=== PATIENT | female | born 1955 | race Caucasian/White ===

== ENCOUNTER 2023-04-03 11:16 | Outpatient (CLI) | payer MEDICARE, SELFPAY | END 2023-04-03 11:17 | disposition home or self-care (01) | PROVIDERS: PCP Internal Medicine; Visit Provider Internal Medicine | DX: Z00.00 Encounter for general adult medical examination without abnormal findings (principal); E78.5 Hyperlipidemia, unspecified; E03.9 Hypothyroidism, unspecified; R73.03 Prediabetes; R53.83 Other fatigue; I10 Essential (primary) hypertension | CPT/HCPCS: 80061; 84443 ==

== ENCOUNTER 2023-12-29 11:33 | Outpatient (CLI) | payer MEDICARE, SELFPAY | END 2023-12-29 11:34 | disposition home or self-care (01) | PROVIDERS: PCP Internal Medicine; Visit Provider Internal Medicine | DX: R73.03 Prediabetes (principal); E78.5 Hyperlipidemia, unspecified; E03.9 Hypothyroidism, unspecified; I10 Essential (primary) hypertension | CPT/HCPCS: 80053; 80061; 84443 ==

== ENCOUNTER 2024-06-03 13:08 | Outpatient (CLI) | payer MEDICARE, SELFPAY ==
--- OUTSIDE RECORDS SUMMARY | 2024-03-08 11:49 | XMS_ITS | Encounter Summary ---
Author Organization [place] Address [address] [place] [address] Care Team Providers Care Environmental Economist Name Role Phone Mariela Martinez MD Primary Care Provide r Cheryle Lo RN Unavailable Mariela Martinez MD Unavailable Mariela Martinez MD Unavailable Shalonda Kat NP Unavailable Mariela Martinez MD Unavailable Reason for Visit * Reason Comments Medication Refill lisinopril-hydrochlo rothiazide (PRINZIDE/ZESTORETIC) 20-25 MG per tablet Encounter Details Date Type Department Care Team (Late st Contact Info) Description 04/29/2017 [facility] [address] [facility] [address] [place] [address] Mariela Martinez MD [address] [place] [address] Medication Refill (lisinopril-hydrochloro thiazide (PRINZIDE/ZESTORETIC) 20-25 MG per tablet) Social History Tobacco Use Types Packs/Day Years Used Date Smoking Tobacco: Former Smokeless Tobacco: Never Alcohol Use Standard Drinks/Week Comments Yes 0 (1 standard drink = 0.6 oz pur e alcohol) once a week Comments No Sex and Gender Information Value Date Recorded Sex Assigned at Not on file Legal Sex Female 3:27 AM AIRCRAFT PAINTER APPRENTICE Gender Identity Not on file Sexual Orientation Not on file documented as of this encounter Miscellaneous Notes * Telephone Encounter - Mariela Martinez MD - 05/02/2017 3:32 PM AIRCRAFT PAINTER APPRENTICE Script sent. Mariela Martinez MD RAFT PAINTER APPRENTICE * Telephone Encounter - Lisa Michaels RN - 05/02/2017 8:45 AM AIRCRAFT PAINTER APPRENTICE Routing refill request to provider for review/approval because: Labs out of range: Low Sodium Upcoming OV in May. Lisa Jones RN, BSN, PHN Alexa Nicole RN RAFT PAINTER APPRENTICE * Telephone Encounter - Minnie Honeycutt - 04/29/2017 11:35 AM CST Requested Prescriptions Pending Prescriptions Disp Refills ??? lisinopril-hydrochlorothiazide (PRINZIDE/ZESTORETIC) 20-25 MG per tablet [Pharmacy Med Name: LISINOPRIL/HCTZ 20-25MG TAB] Last Written Prescription Date: 02/28/2017 Last Fill Quantity: 30, # refills: 1 Last Office Visit with [facility] provider: 02/28/2017 Future Office Visit: Next 5 appointments (look out 90 days) May 05, 2017 1:30 PM AIRCRAFT PAINTER APPRENTICE Return Visit with TANYA [facility] ([facility]) [address] [phone] Jun 02, 2017 10:30 AM AIRCRAFT PAINTER APPRENTICE Return Visit with TANYA Adair [facility] ([facility]) [address] [phone] Jun 17, 2017 10:00 AM CDT Office Visit with Mariela Martinez MD [facility] [address] [place] [address] 30 tablet 1 Sig: TAKE ONE TABLET BY MOUTH ONCE DAILY Diuretics (Including Combos) Protocol Failed 04/29/2017 10:11 AM Failed - Blood pressure under 140/90 BP Readings from Last 3 Encounters: 04/07/17 161/85 04/01/17 130/78 02/28/17 130/72 Failed - Normal serum sodium on file in past 12 months Recent Labs Lab Test 04/07/17 2225 NA 132* Passed - Recent or future visit with authorizing provider's specialty Patient had office visit in the last year or has a visit in the next 30 days with authorizing provider. See Patient Info tab in inbasket, or Choose Columns in Meds & Orders section of the refill encounter. Passed - Patient is age 18 or older Passed - No active pregancy on record Passed - Normal serum creatinine on file in past 12 months Recent Labs Lab Test 04/07/17 2225 CR 0.62 Passed - Normal serum potassium on file in past 12 months Recent Labs Lab Test 04/07/17 2225 POTASSIUM 3.7 Passed - No positive test in past 12 months RAFT PAINTER APPRENTICE documented in this encounter Plan of Treatment Not on file documented as of this encounter Visit Diagnoses Diagnosis Essential hypertension Unspecified essential hypertension documented in this encounter Additional Health Concerns Assessment Noted Time PHQ-9 Depression Total Score: 9 03/26/20 17 10:36 AM AIRCRAFT PAINTER APPRENTICE documented as of this encounter Care Teams Environmental Economist Relationship Specialty Start Date End Date Mariela Martinez MD PCP - General Pediatrics 01/02/11 Mariela Martinez MD [address] [place] [address] PCP - Assigned PCP 05/13/16 06/02/18 Cheryle Lo RN XXX NO INFO FOUND XXX Clinic Technical Sales Manager 11/11/14 Mariela Martinez MD [address] [place] [address] Assigned PCP 05/13/16 07/31/19 Shalonda Kat NP [address] [facility] [place] [address] Assigned PCP 08/01/19 11/06/19 Mariela Martinez MD [address] [place] [address] Assigned PCP 11/07/19 10/12/21 documented as of this encounter
--- OUTSIDE RECORDS SUMMARY | 2024-03-08 11:49 | XMS_ITS | Encounter Summary ---
Author Organization [place] Address [address] [place] [address] Care Team Providers Care Grain Cleaner Name Role Phone Mariela Martinez MD Primary Care Provide r Cheryle Lo RN Unavailable Mariela Martinez MD Unavailable Mariela Martinez MD Unavailable [phone] Shalonda Kat NP Unavailable [phone] Mariela Martinez MD Unavailable Encounter Details Date Type Department Care Team (Late st Contact Info) Description 11/12/2012 [facility] Medical Advice [address] [address] [place] Social History Tobacco Use Types Packs/Day Years Used Date Smoking Tobacco: Former Smokeless Tobacco: Never Alcohol Use Standard Drinks/Week Comments Yes 0 (1 standard drink = 0.6 oz pur e alcohol) once a week Comments No Sex and Gender Information Value Date Recorded Sex Assigned at Not on file Legal Sex Female 3:27 AM ACTIVE DIRECTORY ENGINEER Gender Identity Not on file Sexual Orientation Not on file documented as of this encounter Plan of Treatment Not on file documented as of this encounter Visit Diagnoses Not on filedocumented in this encounter Care Teams Grain Cleaner Relationship Specialty Start Date End Date Mariela Martinez MD PCP - General Pediatrics 01/02/11 Mariela Martinez MD [address] [place] [address] PCP - Assigned PCP 05/13/16 06/02/18 Cheryle Lo RN XXX NO INFO FOUND XXX Clinic Calenderer 11/11/14 Mariela Martinez MD [address] [place] [address] Assigned PCP 05/13/16 07/31/19 Shalonda Kat NP [address] [facility] [place] [address] Assigned PCP 08/01/19 11/06/19 Mariela Martinez MD [address] [place] [address] Assigned PCP 11/07/19 10/12/21 documented as of this encounter
--- OUTSIDE RECORDS SUMMARY | 2024-03-08 11:49 | XMS_ITS | Clinical Summary ---
Author Organization [place] Address [address] [place] [address] Care Team Providers Care Refining Equipment Operator Name Role Phone Mariela Martinez MD Primary Care Provide r Allergies Active Allergy Reactions Criticality Noted Date Comments Banana 01/24/2017 Cheese 02/28/2017 Demerol Hives 12/30/2005 Duloxetine Hcl Hives 12/30/2005 Gluten 11/11/2012 Lip swelling and redness Lactose 09/07/2014 Sensitivity to dairy Morphine Hives 12/30/2005 Morphine And Codeine Hives 12/30/2005 No Clinical Screening - See Comments 11/11/2012 Shampoos and hair dyes and body washes. Is able to use Baby shampoo and Lye soap. Itching Paroxetine Palpitations Low 01/09/2011 Seafood 01/02/2011 Tea Cough 07/10/2011 Camomile Bupropion Hcl Swelling High 01/09/2011 Wheat Extract 09/07/2014 Wheat sensitivity Medications Multiple Vitamins-Mineral s (ONE-A-DAY 50 PLUS PO) Take by mouth. Activ e Menthol, Topical Analgesic, (ICY HOT EX) Externally apply topically. Active aspirin 81 MG tablet Take by mouth daily Active VITAMIN D, CHOLECALCIFEROL, PO Take 2,000 Units by mouth daily Active loratadine (CLARITIN) 10 MG capsule Take 10 mg by mouth daily Active DiphenhydrAMINE HCl (BENADRYL ALLERGY PO) Take by mouth as needed Active lisinopril-hydro chlorothiazide (PRINZIDE/ZESTOR ETIC) 20-25 MG tabletIndication s:Hypertension goal BP (blood pressure) < 140/90 Take 1 tablet by mouth daily 90 tablet 3 9 Active venlafaxine (EFFEXOR XR) 37.5 MG 24 hr capsuleIndicatio ns:Generalized anxiety disorder,Severe episode of recurrent major depressive disorder, without psychotic features (H) One pill daily with 150mg to reach total dose of 187.5 mg 90 capsule 1 9 Active venlafaxine (EFFEXOR-XR) 75 MG 24 hr capsuleIndicatio ns:Generalized anxiety disorder,Severe episode of recurrent major depressive disorder, without psychotic features (H) TAKE TWO CAPSULES BY MOUTH ONCE DAILY 180 capsule 1 9 Active Misc Natural Products (T-RELIEF CBD+13) SUBL 9 Active SYNTHROID 112 MCG tabletIndication s:Hypothyroidism , unspecified type TAKE 1 TABLET BY MOUTH ONCE DAILY 90 tablet 3 9 Active Active Problems Problem Noted Date Diagnosed Date Morbid obesity, unspecified obesity type 017 Atypical migraine 10/31/2016 PTSD (post-traumatic stress disorder) 02/10/2015 Memory loss 01/12/2015 Overview (01/12/2015): Forgetfulness (e.g. Where she placed things, finding words). MoCA on 01/12 was 27 Assessment & Plan (01/12/2015 2:09 PM CDT): A: Forgetfulness (e.g. Where she placed things, finding words). MoCA on 01/12 was 2730. Compounded by stress of depression and PTSD P:We discussed the spectrum of memory changes Added B12, folate BMP to labs and MRI Refer to neuropsychologist for more in depth neuropsych testing Generalized anxiety disorder 11/15/2014 Assessment & Plan (01/12/2015 2:11 PM CDT): A: related to PTSD, controls panic attacks with breathing strategies now P: Feels the depression group she attends is helping a lot and plans to follow that with inquiry about PTSD support group, all also help her overall cognitive function Severe recurrent major depression 09/07/2014 Overview (01/11/2015): Failed paxil (palpitations), zoloft (?palpitations; weight gain), effexor (quit working), cymbalta (hives), wellbutrin (throat swelling), prozac (raised bp, felt better off it). Has not been on lexapro/celexa Hypertension goal BP (blood pressure) < 140/90 0 08/06/2013 TACHO (obstructive sleep apnea) 08/26/2011 Overview (08/26/2011): Dx 07/2011 Fibromyalgia 01/09/2011 Overview (08/16/2011): NSAIDS Wellbutrin, prozac, cymbalta, effexor relafen- ulcers lyrica- mood issues, memory issues. PUD (peptic ulcer disease) 01/09/2011 Overview (01/09/2011): From NSAID use from fibro Hypothyroidism 01/09/2011 CARDIOVASCULAR SCREENING; LDL GOAL LESS THAN 160 01/09/2011 Resolved Problems Problem Noted Date Diagnosed Date Resolved Date Trochanteric bursitis of right hip 02/24/2018 04/23/2018 Weakness of right hip 02/24/20182018 Primary osteoarthritis of right knee 02/24/2018 04/23/2018 Nonallopathic lesion of sacroiliac region 06/15/2015 12/11/2017 Nonallopathic lesion of hip region 06/15/2015 12/11/2017 Cervicalgia 06/11/2015 12/11/2017 Nonallopathic lesion of thoracic region 06/11/2015 12/11/2017 Hip joint pain 03/25/2012 04/27/2012 Chronic low back pain 03/25/20122012 Cervicalgia 09/05/2011 01/15/2012 Lumbago 09/05/2011 01/15/2012 Nonallopathic lesion of thoracic region 09/05/2011 01/15/2012 Overview (12/30/2014): Problem list name updated by automated process. Provider to review Nonallopathic lesion of upper extremities 09/05/2011 01/15/2012 Overview (12/30/2014): Problem list name updated by automated process. Provider to review Pain in joint, shoulder region 09/05/2011 01/15/2012 Advanced directives, counseling/discussion 01/09/2011 09/15/2023 Overview (07/16/2016): Advance Care Planning 07/16/2016: ACP Review of Chart / Resources Provided: Reviewed chart for advance care plan. Gail Celaya has no plan or code status on file. Advance Care Planning letter sent. Code status updated and sent to provider for review. Added by Ilsa Way Discussed advance care planning with patient; information given to patient to review. 01/09/2011 Immunizations Name Administration Dates Next Due COVID-19 MONOVALENT 12+ (Pfizer) 12/26/2020,05/30,06/02/2020 Flu 65+ (Fluad) 12/11/2020 Influenza (High Dose) Trival ent,PF (Fluzone) 01/19/2019 Influenza (IIV3) PF 12/10/2016,01/15/2012,2010 Influenza Vaccine 65+ (Fluzone HD) 01/21/2022 Influenza Vaccine >6 months,quad, PF 12/16/2017 Pneumo Conj 13-V (2010&after) 05/25/2019 Pneumococcal 23 valent 09/12/2020 TDAP (Adacel,Boostrix) 05/25/2009 TDAP Vaccine (Boostrix) 09/12/2020 Zoster recombinant adjuvanted (SHINGRIX) 021 Family History Medical History Relation Comments C.A.D. Father Alzheimer Disease Mother Arthritis Mother Hypertension Mother Respiratory Mother COPD Musculoskeletal Disorder Sister sister has MS Colon Cancer No family hx of Relation Status Comments Brother Alive Father (Age 78) Mother Alive Sister Alive Social History Tobacco Use Types Packs/Day Years Used Date Smoking Tobacco: Former Smokeless Tobacco: Never Tobacco Cessation:Counseling Given: Yes Alcohol Use Standard Drinks/Week Comments Yes 0 (1 standard drink = 0.6 oz pur e alcohol) once a week PHQ-2 Answer Date Recorded PHQ-2 Score 1 12/16/2018 Adolescent Education Answer Date Record ed Getting School Help Needed Not on file 12/29 Comments No Sex and Gender Information Value Date Recorded Sex Assigned at Not on file Legal Sex Female 3:27 AM INDUSTRIAL SAFETY AND HEALTH MANAGER Gender Identity Not on file Sexual Orientation Not on file Last Filed Vital Signs Vital Sign Reading Time Taken Comments Blood Pressure 140/75 03/10/2019 12:19 PM INDUSTRIAL SAFETY AND HEALTH MANAGER Pulse 74 03/10/2019 12:10 PM INDUSTRIAL SAFETY AND HEALTH MANAGER Temperature 36.6 C (97.8 F) 12/16/2018 8:58 AM CDT Respiratory Rate 16 03/10/2019 12:19 PM INDUSTRIAL SAFETY AND HEALTH MANAGER Oxygen Saturation 97% 03/10/2019 12:19 PM INDUSTRIAL SAFETY AND HEALTH MANAGER Inhaled Oxygen Concentration - - Weight 87.1 kg (192 lb) 03/10/2019 10:38 AM INDUSTRIAL SAFETY AND HEALTH MANAGER Height 157.5 cm (5' 2) 03/10/2019 10:38 AM INDUSTRIAL SAFETY AND HEALTH MANAGER Body Mass Index 35.12 03/10/2019 10:38 AM INDUSTRIAL SAFETY AND HEALTH MANAGER Plan of Treatment Not on file Insurance [address] [place] [address] MEDICARE [facility] MEDICARE SUPPLEMENT [place]ARE [place] Advance Directives For more information, please contact: [phone] * Full Code (Latest Code Status on File) Date Activated Date Inactivated Comments 07/17/2016 8:11 AM 03/10/2019 9:03 AM Care Teams Refining Equipment Operator Relationship Specialty Start Date End Date Mariela Martinez MD PCP - General Pediatrics 01/02/11
--- OUTSIDE RECORDS SUMMARY | 2024-03-08 11:49 | XMS_ITS | Encounter Summary ---
Author Organization [place] Address [address] [place] [address] Care Team Providers Care Safety Assistant Name Role Phone Mariela Martinez MD Primary Care Provide r Cheryle Lo RN Unavailable Mariela Martinez MD Unavailable Mariela Martinez MD Unavailable Shalonda Kat NP Unavailable [phone] Mariela Martinez MD Unavailable Reason for Visit * Reason Onset Date Comments Depression 06/07/2014 Questionnaire Encounter Details Date Type Department Care Team (Late st Contact Info) Description 06/07/2014 [facility] Medical Advice [address] [address] Luz Carlson CMA Depression (Questionnaire ) Social History Tobacco Use Types Packs/Day Years Used Date Smoking Tobacco: Former Smokeless Tobacco: Never Alcohol Use Standard Drinks/Week Comments Yes 0 (1 standard drink = 0.6 oz pur e alcohol) once a week Comments No Sex and Gender Information Value Date Recorded Sex Assigned at Not on file Legal Sex Female 3:27 AM OPERATORS TEACHER Gender Identity Not on file Sexual Orientation Not on file documented as of this encounter Plan of Treatment Not on file documented as of this encounter Visit Diagnoses Not on filedocumented in this encounter Care Teams Safety Assistant Relationship Specialty Start Date End Date Mariela Martinez MD PCP - General Pediatrics 01/02/11 Mariela Martinez MD [address] [place] [address] PCP - Assigned PCP 05/13/16 06/02/18 Cheryle Lo, RN XXX NO INFO FOUND XXX Clinic Channel Marketing Specialist 11/11/14 Mariela Martinez MD [address] [place] [address] Assigned PCP 05/13/16 07/31/19 Shalonda Kat NP [address] [facility] [place] [address] Assigned PCP 08/01/19 11/06/19 Mariela Martinez MD [address] [place] [address] Assigned PCP 11/07/19 10/12/21 documented as of this encounter
--- OUTSIDE RECORDS SUMMARY | 2024-03-08 11:49 | XMS_ITS | Referral Summary ---
Author Organization [facility] Address [address] [place] [address] Care Team Providers Care Truck Driver Helper Name Role Phone Mariela Martinez MD Primary [...] (Boostrix) 09/12/2020 Zoster recombinant adjuvanted (SHINGRIX) 021 Social History Tobacco Use Types Packs/Day Years [...] on file Legal Sex Female 3:27 AM HYDRAULIC BOOM OPERATOR Gender Identity Not on file Sexual Orientation Not on file Last Filed Vital Signs Vital Sign Reading Time Taken Comments Blood Pressure 140/75 03/10/2019 12:19 PM HYDRAULIC BOOM OPERATOR Pulse 74 03/10/2019 12:10 PM HYDRAULIC BOOM OPERATOR Temperature 36.6 C (97.8 F) 12/16/2018 8:58 AM CDT Respiratory Rate 16 03/10/2019 12:19 PM HYDRAULIC BOOM OPERATOR Oxygen Saturation 97% 03/10/2019 12:19 PM HYDRAULIC BOOM OPERATOR Inhaled Oxygen Concentration - - Weight 87.1 kg (192 lb) 03/10/2019 10:38 AM HYDRAULIC BOOM OPERATOR Height 157.5 cm (5' 2) 03/10/2019 10:38 AM HYDRAULIC BOOM OPERATOR Body Mass Index 35.12 03/10/2019 10:38 AM HYDRAULIC BOOM OPERATOR Plan of Treatment Not on file Insurance MEDICARE [facility] MEDICARE SUPPLEMENT MEDICARE [place]BS OF [place] MEDICARE SUPPLEMENT Advance Directives For more information, please contact: [phone] * Full Code (Latest Code Status on File) Date Activated Date Inactivated Comments 07/17/2016 8:11 AM 03/10/2019 9:03 AM Care Teams Truck Driver Helper Relationship Specialty Start Date End Date Mariela Martinez MD PCP - General Pediatrics 01/02/11
--- OUTSIDE RECORDS SUMMARY | 2024-03-08 11:49 | XMS_ITS | Encounter Summary ---
Author Organization [place] Address [address] [place] [address] Care Team Providers Care Industrial Photographer Name Role Phone Mariela Martinez MD Primary Care Provide r Cheryle Lo RN Unavailable Mariela Martinez MD Unavailable Shalonda Kat NP Unavailable [phone] Mariela Martinez MD Unavailable Encounter Details Date Type Department Care Team (Late st Contact Info) Description 08/07/2018 [facility] Medical Advice [address] [place] [phone] Marcia [place] Social History Tobacco Use Types Packs/Day Years Used Date Smoking Tobacco: Former Smokeless Tobacco: Never Alcohol Use Standard Drinks/Week Comments Yes 0 (1 standard drink = 0.6 oz pur e alcohol) once a week PHQ-2 Answer Date Recorded PHQ-2 Score 3 04/07/2018 Comments No Sex and Gender Information Value Date Recorded Sex Assigned at Not on file Legal Sex Female 3:27 AM DETENTION WORKER Gender Identity Not on file Sexual Orientation Not on file documented as of this encounter Plan of Treatment Not on file documented as of this encounter Visit Diagnoses Not on filedocumented in this encounter Additional Health Concerns Assessment Noted Time PHQ-9 Depression Total Score: 21 02/23/ 018 11:34 AM DETENTION WORKER documented as of this encounter Care Teams Industrial Photographer Relationship Specialty Start Date End Date Mariela Martinez MD PCP - General Pediatrics 01/02/11 Cheryle Lo, RN XXX NO INFO FOUND XXX Clinic Brief Writer 11/11/14 Mariela Martinez MD [address] [place] [address] Assigned PCP 05/13/16 07/31/19 Shalonda Kat NP [address] [facility] [place] [address] Assigned PCP 08/01/19 11/06/19 Mariela Martinez MD [address] [place] [address] Assigned PCP 11/07/19 10/12/21 documented as of this encounter
--- OUTSIDE RECORDS SUMMARY | 2024-03-08 11:49 | XMS_ITS | Encounter Summary ---
Author Organization [place] Address [address] [place] [address] Care Team Providers Care Guest Service Manager Name Role Phone Mariela Martinez MD Primary Care Provide r Cheryle Lo RN Unavailable Mariela Martinez MD Unavailable Mariela Martinez MD Unavailable Shalonda Kat NP Unavailable Mariela Martinez MD Unavailable Reason for Visit * Reason Onset Date Comments Patient/info Update 04/01/2017 home BP's Encounter Details Date Type Department Care Team (Late st Contact Info) Description 04/01/2017 [facility] Medical Advice [address] [place] [address] Mariela Martinez MD [address] [place] [address] Patient/info Update (home BP's) Social History Tobacco Use Types Packs/Day Years Used Date Smoking Tobacco: Former Smokeless Tobacco: Never Alcohol Use Standard Drinks/Week Comments Yes 0 (1 standard drink = 0.6 oz pur e alcohol) once a week Comments No Sex and Gender Information Value Date Recorded Sex Assigned at Not on file Legal Sex Female 3:27 AM CASH PERSON Gender Identity Not on file Sexual Orientation Not on file documented as of this encounter Plan of Treatment Not on file documented as of this encounter Visit Diagnoses Diagnosis Essential hypertension with goal blood pressure less than 140/90- Primary documented in this encounter Additional Health Concerns Assessment Noted Time PHQ-9 Depression Total Score: 9 03/26/20 17 10:36 AM CASH PERSON documented as of this encounter Care Teams Guest Service Manager Relationship Specialty Start Date End Date Mariela Martinez MD PCP - General Pediatrics 01/02/11 Mariela Martinez MD [address] [place] [address] PCP - Assigned PCP 05/13/16 06/02/18 Cheryle Lo, RN XXX NO INFO FOUND XXX Clinic Pipe Finisher 11/11/14 Mariela Martinez MD [address] [place] [address] Assigned PCP 05/13/16 07/31/19 Shalonda Kat SCALE ADJUSTER [address] [facility] [place] [address] Assigned PCP 08/01/19 11/06/19 Mariela Martinez MD [address] [place] [address] Assigned PCP 11/07/19 10/12/21 documented as of this encounter
--- OUTSIDE RECORDS SUMMARY | 2024-03-08 11:49 | XMS_ITS | Encounter Summary ---
Author Organization [facility] Address [address] [place] [address] Care Team Providers Care Vertical Contour Band Saw Operator Name Role Phone Mariela Martinez MD Primary Care Provide r Cheryle Lo RN Unavailable Mariela Martinez MD Unavailable [phone] Shalonda Kat NP Unavailable Mariela Martinez MD Unavailable Encounter Details Date Type Department Care Team (Late st Contact Info) Description 09/07/2018 [facility] Medical Advice [facility] [address] [facility] [address] [place] [address] Mariela Martinez MD [address] [place] [address] Social History Tobacco Use Types Packs/Day Years Used Date Smoking Tobacco: Former Smokeless Tobacco: Never Alcohol Use Standard Drinks/Week Comments Yes 0 (1 standard drink = 0.6 oz pur e alcohol) once a week PHQ-2 Answer Date Recorded PHQ-2 Score 3 04/07/2018 Comments No Sex and Gender Information Value Date Recorded Sex Assigned at Not on file Legal Sex Female 3:27 AM LATHER APPRENTICE Gender Identity Not on file Sexual Orientation Not on file documented as of this encounter Plan of Treatment Not on file documented as of this encounter Visit Diagnoses Not on filedocumented in this encounter Additional Health Concerns Assessment Noted Time PHQ-9 Depression Total Score: 21 018 11:34 AM LATHER APPRENTICE documented as of this encounter Care Teams Vertical Contour Band Saw Operator Relationship Specialty Start Date End Date Mariela Martinez MD PCP - General Pediatrics 01/02/11 Cheryle Lo, RN XXX NO INFO FOUND XXX Clinic Organ Installer 11/11/14 Mariela Martinez MD [address] [place], [place] [id number] Assigned PCP 05/13/16 07/31/19 Shalonda Kat NP [address] [facility] [place] [id number] Assigned PCP 08/01/19 11/06/19 Mariela Martinez MD [address] [place] [address] Assigned PCP 11/07/19 10/12/21 documented as of this encounter
--- OUTSIDE RECORDS SUMMARY | 2024-03-08 11:49 | XMS_ITS | Encounter Summary ---
Author Organization [facility] Address [address] [place] [address] Care Team Providers Care Superannuation Clerk Name Role Phone Mariela Martinez MD Primary Care Provide r Cheryle Lo RN Unavailable Mariela Martinez MD Unavailable Mariela Martinez MD Unavailable [phone] Shalonda Kat NP Unavailable Mariela Martinez MD Unavailable [phone] Reason for Visit * Reason Onset Date Comments Results 03/01/2015 MRI Encounter Details Date Type Department Care Team (Late st Contact Info) Description 03/01/2015 [facility] [place] [address] [address] Mariela Martinez MD [address] [place] [address] Results (MRI) Social History Tobacco Use Types Packs/Day Years Used Date Smoking Tobacco: Former Smokeless Tobacco: Never Alcohol Use Standard Drinks/Week Comments Yes 0 (1 standard drink = 0.6 oz pur e alcohol) once a week Comments No Sex and Gender Information Value Date Recorded Sex Assigned at Not on file Legal Sex Female 3:27 AM REDUCTION FURNACE OPERATOR HELPER Gender Identity Not on file Sexual Orientation Not on file documented as of this encounter Miscellaneous Notes * Telephone Encounter - Adrienne Barnes RN - 03/01/2015 4:39 PM CST Routing to Dr. Martinez to review patient's MRI results. Adrienne Barnes RN CTION FURNACE OPERATOR HELPER documented in this encounter Plan of Treatment Not on file documented as of this encounter Visit Diagnoses Not on filedocumented in this encounter Additional Health Concerns Assessment Noted Time PHQ-9 Depression Total Score: 11 015 7:25 AM REDUCTION FURNACE OPERATOR HELPER documented as of this encounter Care Teams Superannuation Clerk Relationship Specialty Start Date End Date Mariela Martinez MD PCP - General Pediatrics 01/02/11 Mariela Martinez MD [address] [place] [address] PCP - Assigned PCP 05/13/16 06/02/18 Cheryle Lo RN XXX NO INFO FOUND XXX Clinic Bar Steward 11/11/14 Mariela Martinez MD [address] [place] [address] Assigned PCP 05/13/16 07/31/19 Shalonda Kat SCHOOL ATHLETIC DIRECTOR [address] [facility] [place] [address] Assigned PCP 08/01/19 11/06/19 Mariela Martinez MD [address] [place] [address] Assigned PCP 11/07/19 10/12/21 documented as of this encounter
--- OUTSIDE RECORDS SUMMARY | 2024-03-08 11:49 | XMS_ITS | Encounter Summary ---
Author Organization [place] Address [facility] [place] [address] Care Team Providers Care Safety Investigator/Cause Analyst Name Role Phone Mariela Martinez MD Primary Care Provide r Cheryle Lo RN Unavailable Mariela Martinez MD Unavailable [phone] Shalonda Kat NP Unavailable [phone] Mariela Martinez MD Unavailable Reason for Visit * Reason Onset Date Comments MyChart Communication 09/07/2018 Sinus infe ction not improving Encounter Details Date Type Department Care Team (Late st Contact Info) Description 09/07/2018 [facility] Medical Advice [place] [id number] [facility] [address] [place] [address] Mariela Martinez MD [address] [place] [address] MyChart Communication (Sinus infection not... Social History Tobacco Use Types Packs/Day Years Used Date Smoking Tobacco: Former Smokeless Tobacco: Never Alcohol Use Standard Drinks/Week Comments Yes 0 (1 standard drink = 0.6 oz pur e alcohol) once a week PHQ-2 Answer Date Recorded PHQ-2 Score 3 04/07/2018 Comments No Sex and Gender Information Value Date Recorded Sex Assigned at Not on file Legal Sex Female 3:27 AM DIP PAINTER Gender Identity Not on file Sexual Orientation Not on file documented as of this encounter Miscellaneous Notes * Telephone Encounter - Lisa Michaels RN - 09/08/2018 8:32 AM CDT PCP please review MyChart message regarding sinusitis. Triage awaiting patient response. Lisa Araujo RN, BSN, PHN documented in this encounter Plan of Treatment Not on file documented as of this encounter Visit Diagnoses Not on filedocumented in this encounter Additional Health Concerns Assessment Noted Time PHQ-9 Depression Total Score: 21 018 11:34 AM DIP PAINTER documented as of this encounter Care Teams Safety Investigator/Cause Analyst Relationship Specialty Start Date End Date Mariela Martinez MD PCP - General Pediatrics 01/02/11 Cheryle Lo RN XXX NO INFO FOUND XXX Clinic Staffing Clerk 11/11/14 Mariela Martinez MD [address] [place] [address] Assigned PCP 05/13/16 07/31/19 Shalonda Kat NP [address] [facility] [place] [address] Assigned PCP 08/01/19 11/06/19 Mariela Martinez MD [address] [place] [address] Assigned PCP 11/07/19 10/12/21 documented as of this encounter
--- OUTSIDE RECORDS SUMMARY | 2024-03-08 11:49 | XMS_ITS | Encounter Summary ---
Author Organization [facility] Address [address] [place] [address] Care Team Providers Care Retail Financial Analyst Name Role Phone Mariela Martinez MD Primary Care Provide r Cheryle Lo RN Unavailable Mariela Martinez MD Unavailable Mariela Martinez MD Unavailable Shalonda Kat NP Unavailable Mariela Martinez MD Unavailable [phone] Reason for Visit * Reason Onset Date Comments Hypertension 06/21/2012 Encounter Details Date Type Department Care Team (Late st Contact Info) Description 06/21/2012 [facility] Medical Advice [address] [address] Mariela Martinez MD [address] [place] [address] Hypertension Social History Tobacco Use Types Packs/Day Years Used Date Smoking Tobacco: Former Smokeless Tobacco: Never Alcohol Use Standard Drinks/Week Comments Yes 0 (1 standard drink = 0.6 oz pur e alcohol) once a week Comments No Sex and Gender Information Value Date Recorded Sex Assigned at Not on file Legal Sex Female 3:27 AM DISPLAY MECHANIC Gender Identity Not on file Sexual Orientation Not on file documented as of this encounter Miscellaneous Notes * Telephone Encounter - Temi Merida - 06/22/2012 7:46 AM CDT Per office appointment note of 03/18/12-HTN (hypertension) -well controlled, no need for meds currently Patient had been on Lisinopril/HCTZ prior to this. Office appointment for blood pressure check? Ja Merida RN documented in this encounter Plan of Treatment Not on file documented as of this encounter Visit Diagnoses Diagnosis HTN (hypertension)- Primary Unspecified essential hypertension documented in this encounter Care Teams Retail Financial Analyst Relationship Specialty Start Date End Date Mariela Martinez MD PCP - General Pediatrics 01/02/11 Mariela Martinez MD [address] [place] [address] PCP - Assigned PCP 05/13/16 06/02/18 Cheryle Lo RN XXX NO INFO FOUND XXX Clinic Outside Collector 11/11/14 Mariela Martinez MD [address] [place] [address] Assigned PCP 05/13/16 07/31/19 Shalonda Kat NP [address] [facility] [place] [address] Assigned PCP 08/01/19 11/06/19 Mariela Martinez MD [address] [place] [address] Assigned PCP 11/07/19 10/12/21 documented as of this encounter
--- OUTSIDE RECORDS SUMMARY | 2024-03-08 11:49 | XMS_ITS | Encounter Summary ---
Author Organization [facility] Address [facility] [place] [address] Care Team Providers Care Director Of Informatics Name Role Phone Mariela Martinez MD Primary Care Provide r Cheryle Lo RN Unavailable Mariela Martinez MD Unavailable Mariela Martinez MD Unavailable Shalonda Kat NP Unavailable [phone] Mariela Martinez MD Unavailable Reason for Visit * Reason Onset Date Comments Outpatient 11/15/2014 Other Encounter Details Date Type Department Care Team (Late st Contact Info) Description 11/15/2014 Telephone [facility] Intake [address] [place] [address] Generic, Behavioral IntakeMD Outpatient; Social History Tobacco Use Types Packs/Day Years Used Date Smoking Tobacco: Former Smokeless Tobacco: Never Alcohol Use Standard Drinks/Week Comments Yes 0 (1 standard drink = 0.6 oz pur e alcohol) once a week Comments No Sex and Gender Information Value Date Recorded Sex Assigned at Not on file Legal Sex Female 3:27 AM TILE MECHANIC HELPER Gender Identity Not on file Sexual Orientation Not on file documented as of this encounter Miscellaneous Notes * Telephone Encounter - RuthCassidy kennedy - 11/21/2014 3:20 PM CDT ----- Message from TANYA Maria sent at 11/21/2014 3:12 PM CDT ----- Regarding: New start in the partial program Good Day! This pt will start the partial program on November 23. Dr. Gonzalez will be the admitting MD. She has [employer] insurance which does not require a precert per [facility]. Thank you! ANNA Jimenez, TANYA Psychotherapist * Telephone Encounter - Srini Chen - 11/16/2014 10:48 AM CDT Partial Assessment scheduled for 11/21/14 at 1045am with Rosangela Wills * Telephone Encounter - Cheryle Lerner - 11/15/2014 3:04 PM CDT recvd call from [facility] therapist Jennifer Bartlett referring her patient to [facility] See clinical in [facility] documented in this encounter Plan of Treatment Not on file documented as of this encounter Visit Diagnoses Not on filedocumented in this encounter Care Teams Director Of Informatics Relationship Specialty Start Date End Date Mariela Martinez MD PCP - General Pediatrics 01/02/11 Mariela Martinez MD [address] [place] [address] PCP - Assigned PCP 05/13/16 06/02/18 Cheryle Lo RN XXX NO INFO FOUND XXX Clinic Woven Blind Loom Tender 11/11/14 Mariela Martinez MD [address] [place] [address] Assigned PCP 05/13/16 07/31/19 Shalonda Kat NP [address] [place] [address] Assigned PCP 08/01/19 11/06/19 Mariela Martinez MD [address] [place] [address] Assigned PCP 11/07/19 10/12/21 documented as of this encounter
--- OUTSIDE RECORDS SUMMARY | 2024-03-08 11:49 | XMS_ITS | Encounter Summary ---
Author Organization [facility] Address [address] [place] [address] Care Team Providers Care Occupational Therapy Co Director Name Role Phone Mariela Martinez MD Primary Care Provide r Cheryle Lo RN Unavailable Mariela Martinez MD Unavailable Mariela Martinez MD Unavailable [phone] Shalonda Kat NP Unavailable Mariela Martinez MD Unavailable Reason for Visit * Reason Onset Date Comments Other 09/01/2015 Update Encounter Details Date Type Department Care Team (Late st Contact Info) Description 09/01/2015 [facility] Medical Advice [address] [address] Mariela Martinez MD [address] [place] [address] Other (Update ) Social History Tobacco Use Types Packs/Day Years Used Date Smoking Tobacco: Former Smokeless Tobacco: Never Alcohol Use Standard Drinks/Week Comments Yes 0 (1 standard drink = 0.6 oz pur e alcohol) once a week Comments No Sex and Gender Information Value Date Recorded Sex Assigned at Not on file Legal Sex Female 3:27 AM INDUSTRIAL ORGANIZATION MANAGER Gender Identity Not on file Sexual Orientation Not on file documented as of this encounter Miscellaneous Notes * Telephone Encounter - Adrienne Barnes RN - 09/01/2015 12:43 PM CDT Routing to Dr. Martinez to update. Adrienne Barnes RN documented in this encounter Plan of Treatment Not on file documented as of this encounter Visit Diagnoses Not on filedocumented in this encounter Additional Health Concerns Assessment Noted Time PHQ-9 Depression Total Score: 016 7:16 AM CDT documented as of this encounter Care Teams Occupational Therapy Co Director Relationship Specialty Start Date End Date Mariela Martniez MD PCP - General Pediatrics 01/02/11 Mariela Martinez MD [address] [place] [address] PCP - Assigned PCP 05/13/16 06/02/18 Cheryle Lo RN XXX NO INFO FOUND XXX Clinic Veneer Grader 11/11/14 Mariela Martinez MD [address] [place], [place] [address] Assigned PCP 05/13/16 07/31/19 Shalonda Kat SALES SUPPORT ASSOCIATE [address] [facility] [place] [address] Assigned PCP 08/01/19 11/06/19 Mariela Martinez MD [address] [place] [address] Assigned PCP 11/07/19 10/12/21 documented as of this encounter
--- OUTSIDE RECORDS SUMMARY | 2024-03-08 11:49 | XMS_ITS | Encounter Summary ---
Author Organization [facility] Address [address] [place] [address] Care Team Providers Care Make Up Operator Name Role Phone Mariela Martinez MD Primary Care Provide r Cheryle Lo RN Unavailable Mariela Martinez MD Unavailable Mariela Martinez MD Unavailable Shalonda Kat NP Unavailable [phone] Mariela Martinez MD Unavailable Reason for Visit * Reason Onset Date Comments Patient Request for Note/Letter 11/12/2014 Work Encounter Details Date Type Department Care Team (Late st Contact Info) Description 11/12/2014 [facility] Medical Advice [address] [address] Mariela Martinez MD [address] [place] [address] Patient Request for Note/Letter (Work ) Social History Tobacco Use Types Packs/Day Years Used Date Smoking Tobacco: Former Smokeless Tobacco: Never Alcohol Use Standard Drinks/Week Comments Yes 0 (1 standard drink = 0.6 oz pur e alcohol) once a week Comments No Sex and Gender Information Value Date Recorded Sex Assigned at Not on file Legal Sex Female 3:27 AM SQL DBA Gender Identity Not on file Sexual Orientation Not on file documented as of this encounter Miscellaneous Notes * Telephone Encounter - Adrinene Gilliam RN - 11/15/2014 1:58 PM CDT Routing to Dr. Martinez to update and advise further. Adrienne Gilliam RN * Telephone Encounter - Adrienne Gilliam RN - 11/14/2014 7:30 AM CDT Routing to Dr. Martinez to review and advise on writing letter for patient for work. Adrienne Gilliam RN documented in this encounter Plan of Treatment Not on file documented as of this encounter Visit Diagnoses Not on filedocumented in this encounter Care Teams Make Up Operator Relationship Specialty Start Date End Date Mariela Martinez MD PCP - General Pediatrics 01/02/11 Mariela Martinez MD [address] [place] [address] PCP - Assigned PCP 05/13/16 06/02/18 Cheryle Lo RN XXX NO INFO FOUND XXX Clinic It Quality Analyst 11/11/14 Mariela Martinez MD [address] [place] [address] Assigned PCP 05/13/16 07/31/19 Shalonda Kat NP [address] [facility] [place] [address] Assigned PCP 08/01/19 11/06/19 Mariela Martinez MD [address] [place] [address] Assigned PCP 11/07/19 10/12/21 documented as of this encounter
--- OUTSIDE RECORDS SUMMARY | 2024-03-08 11:49 | XMS_ITS | Encounter Summary ---
Author Organization [facility] Address [facility] [place] [address] Care Team Providers Care Artillery Specialist Name Role Phone Mariela Martinez MD Primary Care Provide r Cheryle Lo RN Unavailable Mariela Martinez MD Unavailable Mariela Martinez MD Unavailable Shalonda Kat NP Unavailable Mariela Martinez MD Unavailable Encounter Details Date Type Department Care Team (Late st Contact Info) Description 08/01/2017 [facility] Medical Advice [address] [place] [address] Mariela Martinez MD [address] [place] [address] Social History Tobacco Use Types Packs/Day Years Used Date Smoking Tobacco: Former Smokeless Tobacco: Never Alcohol Use Standard Drinks/Week Comments Yes 0 (1 standard drink = 0.6 oz pur e alcohol) once a week Comments No Sex and Gender Information Value Date Recorded Sex Assigned at Not on file Legal Sex Female 3:27 AM EMERGENCY MANAGEMENT COORDINATOR Gender Identity Not on file Sexual Orientation Not on file documented as of this encounter Plan of Treatment Not on file documented as of this encounter Visit Diagnoses Not on filedocumented in this encounter Additional Health Concerns Assessment Noted Time PHQ-9 Depression Total Score: 25 018 7:34 AM CDT documented as of this encounter Care Teams Artillery Specialist Relationship Specialty Start Date End Date Mariela Martinez MD PCP - General Pediatrics 01/02/11 Mariela Martinez MD [address] [place] [address] PCP - Assigned PCP 05/13/16 06/02/18 Cheryle Lo, ZABRINA XXX NO INFO FOUND XXX Clinic Casino Beverage Server 11/11/14 Mariela Martinez MD [address] [place] [address] Assigned PCP 05/13/16 07/31/19 Shalonda Kat NP [address] [facility] [place] [address] Assigned PCP 08/01/19 11/06/19 Mariela Martinez MD [address] [place] [address] Assigned PCP 11/07/19 10/12/21 documented as of this encounter
--- OUTSIDE RECORDS SUMMARY | 2024-03-08 11:49 | XMS_ITS | Encounter Summary ---
Author Organization [facility] Address [address] [place] [address] Care Team Providers Care High Pressure Kettle Operator Name Role Phone Mariela Martinez MD Primary Care Provide r Cheryle Lo RN Unavailable Mariela Martinez MD Unavailable Shalonda Kat NP Unavailable [phone] Mariela Martinez MD Unavailable Encounter Details Date Type Department Care Team (Late st Contact Info) Description 06/05/2018 My[facility] Medical Advice [facility] [address] [facility] [address] [place] [address] Mariela Martinez MD [address] [place] [address] Social History Tobacco Use Types [...] on file Legal Sex Female 3:27 AM CLIENT REPORTING ASSOCIATE Gender Identity Not on file Sexual Orientation Not on file documented as of this encounter Plan of Treatment Not on file documented as of this encounter Visit Diagnoses Not on filedocumented in this encounter Additional Health Concerns Assessment Noted Time PHQ-9 Depression Total Score: 21 018 11:34 AM CLIENT REPORTING ASSOCIATE documented as of this encounter Care Teams High Pressure Kettle Operator Relationship Specialty Start Date End Date Mariela Martinez MD PCP - General Pediatrics 01/02/11 Cheryle Lo, RN XXX NO INFO FOUND XXX Clinic Commercial Underwriter 11/11/14 Mariela Martinez MD [address] [place], [place] [address] Assigned PCP 05/13/16 07/31/19 Shalonda Kat NP [address] [facility] [place] [id number] Assigned PCP 08/01/19 11/06/19 Mariela Martinez MD [address] [place] [address] Assigned PCP 11/07/19 10/12/21 documented as of this encounter
--- OUTSIDE RECORDS SUMMARY | 2024-03-08 11:49 | XMS_ITS | Encounter Summary ---
Author Organization [facility] Address [address] [place] [address] Care Team Providers Care Vehicle Damage Appraiser Name Role Phone Mariela Martinez MD Primary Care Provide r Cheryle Lo RN Unavailable Mariela Martinez MD Unavailable Mariela Martinez MD Unavailable [phone] Shalonda Kat NP Unavailable [phone] Mariela Martinez MD Unavailable Encounter Details Date Type Department Care Team (Late st Contact Info) Description 07/17/2012 [facility] Medical Adv[place] [address] [address] Marcia [facility] Social History Tobacco Use Types Packs/Day Years Used Date Smoking Tobacco: Former Smokeless Tobacco: Never Alcohol Use Standard Drinks/Week Comments Yes 0 (1 standard drink = 0.6 oz pur e alcohol) once a week Comments No Sex and Gender Information Value Date Recorded Sex Assigned at Not on file Legal Sex Female 3:27 AM HEEL SEAT TRIMMER Gender Identity Not on file Sexual Orientation Not on file documented as of this encounter Plan of Treatment Not on file documented as of this encounter Visit Diagnoses Not on filedocumented in this encounter Care Teams Vehicle Damage Appraiser Relationship Specialty Start Date End Date Mariela Maritnez MD PCP - General Pediatrics 01/02/11 Mariela Martinez MD [address] [place] [address] PCP - Assigned PCP 05/13/16 06/02/18 Cheryle Lo RN XXX NO INFO FOUND XXX Clinic Online Advertising Director 11/11/14 Mariela Martinez MD [address] [place] [address] Assigned PCP 05/13/16 07/31/19 Shalonda Kat NP [address] [facility] [place] [address] Assigned PCP 08/01/19 11/06/19 Mariela Martinez MD [address] [place] [address] Assigned PCP 11/07/19 10/12/21 documented as of this encounter
--- OUTSIDE RECORDS SUMMARY | 2024-03-08 11:49 | XMS_ITS | Encounter Summary ---
Author Organization [facility] Address [address] [place] [address] Care Team Providers Care Engineering Assistant Name Role Phone Mariela Martinez MD Primary Care Provide r Cheryle Lo RN Unavailable Mariela Martinez MD Unavailable [phone] Mariela Martinez MD Unavailable Shalonda Kat NP Unavailable [phone] Mariela Martinez MD Unavailable Reason for Visit * Reason Onset Date Comments Refill Request 08/29/2017 venlafaxine (EFF EXOR XR) 37.5 MG 24 hr capsule Encounter Details Date Type Department Care Team (Late st Contact Info) Description 08/29/2017 [facility] [address] [place] [address] Mariela Martinez MD [address] [place] [address] Refill Request (venlafaxine (EFFEXOR XR) 37.5 MG 24 hr capsule) Social History Tobacco Use Types Packs/Day Years Used Date Smoking Tobacco: Former Smokeless Tobacco: Never Alcohol Use Standard Drinks/Week Comments Yes 0 (1 standard drink = 0.6 oz pur e alcohol) once a week Comments No Sex and Gender Information Value Date Recorded Sex Assigned at Not on file Legal Sex Female 3:27 AM UNION CONTRACT REPRESENTATIVE Gender Identity Not on file Sexual Orientation Not on file documented as of this encounter Miscellaneous Notes * Telephone Encounter - Mariela Martinez MD - 08/29/2017 3:43 PM CDT Script sent. Mariela Martinez MD * Telephone Encounter - Aida Sumner RN - 08/29/2017 3:17 PM CDT Routing refill request to provider for review/approval because: PHQ9 outside protocol range Aida Sumner RN * Telephone Encounter - EliseoMaisha - 08/29/2017 10:15 AM CDT Requested Prescriptions Pending Prescriptions Disp Refills ??? venlafaxine (EFFEXOR-XR) 75 MG 24 hr capsule [Pharmacy Med Name: VENLAFAXINE ER 75MG CAP] Last Written Prescription Date: 08/20/2016 Last Fill Quantity: 90 capsule, # refills: 3 Last office visit: 08/12/2017 with prescribing provider: Mariela Martinez MD Future Office Visit: Next 5 appointments (look out 90 days) Sep 01, 2017 1:30 PM CDT Return Visit with TANYA Adair [facility] [address] [phone] Oct 06, 2017 10:30 AM CDT Return Visit with Mayi Leslie POLY AREA SUPERVISOR [facility] ([facility]) [address] [phone] 180 capsule 5 Sig: TAKE TWO CAPSULES BY MOUTH ONCE DAILY Serotonin-Norepinephrine Reuptake Inhibitors Failed 08/29/2017 10:06 AM Failed - PHQ-9 score of less than 5 in past 6 months Please review last PHQ-9 score. PHQ-9 SCORE 06/02/2017 07/07/2017 08/04/2017 Total Score - - - Total Score MyChart - - - Total Score 20 25 18 ADIA-7 SCORE 06/02/2017 07/07/2017 08/04/2017 Total Score - - - Total Score 18 18 11 Passed - Blood pressure under 140/90 in past 12 months BP Readings from Last 3 Encounters: 08/12/17 128/70 06/17/17 122/68 04/07/17 161/85 Passed - Patient is age 18 or older Passed - No active on record Passed - Normal serum creatinine on file in past 12 months Recent Labs Lab Test 04/07/17 2225 CR 0.62 Passed - No positive test in past 12 months Passed - Recent (6 mo) or future (30 days) visit within the authorizing provider's specialty Patient had office visit in the last 6 months or has a visit in the next 30 days with authorizing provider or within the authorizing provider's specialty. See Patient Info tab in inbasket, or Choose Columns in Meds & Orders section of the refill encounter. documented in this encounter Plan of Treatment Not on file documented as of this encounter Visit Diagnoses Diagnosis Major depressive disorder, recurrent, severe without psychotic features (H) Major depressive disorder, recurrent episode, severe, without mention of psychotic behavior Generalized anxiety disorder documented in this encounter Additional Health Concerns Assessment Noted Time PHQ-9 Depression Total Score: 18 018 7:39 AM CDT documented as of this encounter Care Teams Engineering Assistant Relationship Specialty Start Date End Date Mariela Martinez MD PCP - General Pediatrics 01/02/11 Mariela Martinez MD [address] [place] [address] PCP - Assigned PCP 05/13/16 06/02/18 Cheryle Lo RN XXX NO INFO FOUND XXX Clinic Rn Charge 11/11/14 Mariela Martinez MD [address] [facility] [place] [address] Assigned PCP 05/13/16 07/31/19 Shalonda Kat NP [address] [facility] [place] [address] Assigned PCP 08/01/19 11/06/19 Mariela Martinez MD [address] [place] [address] Assigned PCP 11/07/19 10/12/21 documented as of this encounter
--- OUTSIDE RECORDS SUMMARY | 2024-03-08 11:49 | XMS_ITS | Encounter Summary ---
Author Organization [facility] Address [address] [place] [address] Care Team Providers Care Emergency Communications Officer Name Role Phone Mariela Martinez MD Primary Care Provide r Cheryle Lo RN Unavailable Mariela Martinez MD Unavailable Mariela Martinez MD Unavailable [phone] Shalonda Kat NP Unavailable Mariela Martinez MD Unavailable Encounter Details Date Type Department Care Team (Late st Contact Info) Description 12/23/2015 [facility] Medical Advice [address] [address] Mariela Martinez MD [address] [place], [place] [id number] Social History Tobacco Use Types Packs/Day Years Used Date Smoking Tobacco: Former Smokeless Tobacco: Never Alcohol Use Standard Drinks/Week Comments Yes 0 (1 standard drink = 0.6 oz pur e alcohol) once a week Comments No Sex and Gender Information Value Date Recorded Sex Assigned at Not on file Legal Sex Female 3:27 AM GAS TORCH SOLDERER Gender Identity Not on file Sexual Orientation Not on file documented as of this encounter Plan of Treatment Not on file documented as of this encounter Visit Diagnoses Not on filedocumented in this encounter Additional Health Concerns Assessment Noted Time PHQ-9 Depression Total Score: 6 12/21/19 16 7:18 AM CDT documented as of this encounter Care Teams Emergency Communications Officer Relationship Specialty Start Date End Date Mariela Martinez MD PCP - General Pediatrics 01/02/11 Mariela Martinez MD [address] [place] [address] PCP - Assigned PCP 05/13/16 06/02/18 Cheryle Lo, RN XXX NO INFO FOUND XXX Clinic Anatomy Teacher 11/11/14 Mariela Martinez MD [address] [place] [address] Assigned PCP 05/13/16 07/31/19 Shalonda Kat NP [address] [facility] [place] [address] Assigned PCP 08/01/19 11/06/19 Mariela Martinez MD [address] [place] [address] Assigned PCP 11/07/19 10/12/21 documented as of this encounter
--- OUTSIDE RECORDS SUMMARY | 2024-03-08 11:49 | XMS_ITS | Encounter Summary ---
Author Organization [place] Address [address] [place] [address] Care Team Providers Care Circuit Designer Name Role Phone Mariela Martinez MD Primary Care Provide r Cheryle Lo RN Unavailable Mariela Martinez MD Unavailable Mariela Martinez MD Unavailable Shalonda Kat NP Unavailable Mariela Martinez MD Unavailable Reason for Visit * Reason Onset Date Comments Other 12/25/2014 Update Encounter Details Date Type Department Care Team (Late st Contact Info) Description 12/25/2014 [facility] Medical Advice [address] [address] Mariela Martinez MD [address] [place] [address] Other (Update ) Social History Tobacco Use Types Packs/Day Years Used Date Smoking Tobacco: Former Smokeless Tobacco: Never Alcohol Use Standard Drinks/Week Comments Yes 0 (1 standard drink = 0.6 oz pur e alcohol) once a week Comments No Sex and Gender Information Value Date Recorded Sex Assigned at Not on file Legal Sex Female 3:27 AM CRANKSHAFT STRAIGHTENER Gender Identity Not on file Sexual Orientation Not on file documented as of this encounter Miscellaneous Notes * Telephone Encounter - Adrienne Barnes RN - 01/10/2015 8:14 AM CDT Routing to Dr. Martinez to update, med list updated. Adrienne Barnes RN * Telephone Encounter - Adrienne Barnes RN - 12/27/2014 2:17 PM CDT Routing to Dr. Martinez to review and advise. Adrienne Barnes RN documented in this encounter Plan of Treatment Not on file documented as of this encounter Results * Vitamin B12 (02/10/2015 7:56 AM CRANKSHAFT STRAIGHTENER) Vitamin B12 345 193 - 986 pg/mL [facility] Comment:Interp: [phone] = No rmal Blood specimen (specimen) 02/10/2015 7:56 AM CRANKSHAFT STRAIGHTENER 02/10/2015 8:01 AM CRANKSHAFT STRAIGHTENER us Mariela Martinez MD LAB - BLOOD ORDERABLE S Final Result [facility] [address] [place] [address] * Vitamin D Deficiency (02/10/2015 7:56 AM CRANKSHAFT STRAIGHTENER) Vitamin D Deficiency screening 24 20 - 75 ug/L [facility] Comment: Season, race, dietary intake, and treatment affect the concentration of 81-rzmgekr-Rmktfsu D. Values may decrease during winter months and increase during summer months. Values 20-29 ug/L may indicate Vitamin D insufficiency and values <20 ug/L may indicate Vitamin D deficiency. Vitamin D determination is routinely performed by an immunoassay specific for 25 hydroxyvitamin D3. If an individual is on vitamin D2 (ergocalciferol) supplementation, please specify 25 OH vitamin D2 and D3 level determination by LCMSMS test VITD23. Blood specimen (specimen) 02/10/2015 7:56 AM CRANKSHAFT STRAIGHTENER 02/10/2015 8:01 AM CRANKSHAFT STRAIGHTENER us Mariela Martinez MD LAB - BLOOD ORDERABLE S Final Result [facility] [address] [place] [address] * T4 FREE (02/10/2015 7:56 AM CRANKSHAFT STRAIGHTENER) T4 Free 1.35 0.76 - 1.46 ng/dL [facility] Blood specimen (specimen) 02/10/2015 7:56 AM CRANKSHAFT STRAIGHTENER 02/10/2015 8:01 AM CRANKSHAFT STRAIGHTENER us Mariela Martinez MD LAB - BLOOD ORDERABLE S Final Result Performing Organization Address City/[facility]/ZIP Co de Phone Number [facility] [address] [address] * TSH (02/10/2015 7:56 AM CRANKSHAFT STRAIGHTENER) TSH 1.07 0.40 - 4.00 mU/L [facility] Blood specimen (specimen) 02/10/2015 7:56 AM CRANKSHAFT STRAIGHTENER 02/10/2015 8:01 AM CRANKSHAFT STRAIGHTENER us Mariela Martinez MD LAB - BLOOD ORDERABLE S Final Result Performing Organization Address City/[facility]/ZIP Co de Phone Number [facility] [address] [place] [address] documented in this encounter Visit Diagnoses Diagnosis Hypothyroidism, unspecified hypothyroidism type- Primary Major depressive disorder, recurrent, severe without psychotic features (H) Major depressive disorder, recurrent episode, severe, without mention of psychotic behavior Major depressive disorder, recurrent episode, moderate (H) Major depressive disorder, recurrent episode, moderate documented in this encounter Care Teams Circuit Designer Relationship Specialty Start Date End Date Mariela Martinez MD PCP - General Pediatrics 01/02/11 Mariela Martinez MD [address] [place] [address] PCP - Assigned PCP 05/13/16 06/02/18 Cheryle Lo, RN XXX NO INFO FOUND XXX Clinic Software Team Leader 11/11/14 Mariela Martinez MD [address] [place] [address] Assigned PCP 05/13/16 07/31/19 Shalonda Kat NP [address] [facility] [place] [address] Assigned PCP 08/01/19 11/06/19 Mariela Martinez MD [address] [place] [address] Assigned PCP 11/07/19 10/12/21 documented as of this encounter
--- OUTSIDE RECORDS SUMMARY | 2024-03-08 11:49 | XMS_ITS | Encounter Summary ---
Author Organization [facility] Address [address] [place] [address] Care Team Providers Care Freight Car Builder Name Role Phone Mariela Martinez MD Primary Care Provide r Cheryle Lo RN Unavailable Mariela Martinez MD Unavailable Shalonda Kat NP Unavailable Mariela Martinez MD Unavailable Encounter Details Date Type Department Care Team (Late st Contact Info) Description 11/02/[address] [facility] [address] [facility] [address] [place] [address] Mariela Martinez MD [address] [place] [address] Essential hypertension Social History Tobacco Use Types Packs/Day Years Used Date Smoking Tobacco: Former Smokeless Tobacco: Never Alcohol Use Standard Drinks/Week Comments Yes 0 (1 standard drink = 0.6 oz pur e alcohol) once a week PHQ-2 Answer Date Recorded PHQ-2 Score 3 04/07/2018 Comments No Sex and Gender Information Value Date Recorded Sex Assigned at Not on file Legal Sex Female 3:27 AM DIRECTOR OF MUSIC THERAPY Gender Identity Not on file Sexual Orientation Not on file documented as of this encounter Miscellaneous Notes * Telephone Encounter - Adry Alvarez RN - 11/02/2018 2:56 PM CDT Prescription approved per [facility] Refill Protocol. Adry Alvarez RN BSN [facility] documented in this encounter Plan of Treatment Not on file documented as of this encounter Visit Diagnoses Diagnosis Essential hypertension Unspecified essential hypertension documented in this encounter Additional Health Concerns Assessment Noted Time PHQ-9 Depression Total Score: 21 018 11:34 AM DIRECTOR OF MUSIC THERAPY documented as of this encounter Care Teams Freight Car Builder Relationship Specialty Start Date End Date Mariela Martinez MD PCP - General Pediatrics 01/02/11 Cheryle Lo RN XXX NO INFO FOUND XXX Clinic Flatwork Catcher 11/11/14 Mariela Martinez MD [address] [place] [address] Assigned PCP 05/13/16 07/31/19 Shalonda Kat NP [address] [facility] [place] [address] Assigned PCP 08/01/19 11/06/19 Mariela Martinez MD [address] [place] [address] Assigned PCP 11/07/19 10/12/21 documented as of this encounter
--- OUTSIDE RECORDS SUMMARY | 2024-03-08 11:49 | XMS_ITS | Encounter Summary ---
Author Organization [facility] Address [address] [place] [address] Care Team Providers Care Rehab Specialist Name Role Phone Mariela Martinez MD Primary Care Provide r Cheryle Lo RN Unavailable Mariela Martinez MD Unavailable Mariela Martinez MD Unavailable [phone] Shalonda Kat NP Unavailable [phone] Mariela Martinez MD Unavailable [phone] Encounter Details Date Type Department Care Team (Late st Contact Info) Description 08/12/2012 [facility] Medical Advice [address] [address] [place] Social History Tobacco Use Types Packs/Day Years Used Date Smoking Tobacco: Former Smokeless Tobacco: Never Alcohol Use Standard Drinks/Week Comments Yes 0 (1 standard drink = 0.6 oz pur e alcohol) once a week Comments No Sex and Gender Information Value Date Recorded Sex Assigned at Not on file Legal Sex Female 3:27 AM HELPER/DRIVER Gender Identity Not on file Sexual Orientation Not on file documented as of this encounter Plan of Treatment Not on file documented as of this encounter Visit Diagnoses Not on filedocumented in this encounter Care Teams Rehab Specialist Relationship Specialty Start Date End Date Mariela Martinez MD PCP - General Pediatrics 01/02/11 Mariela Martinez MD [address] [place] [address] PCP - Assigned PCP 05/13/16 06/02/18 Cheryle Lo RN XXX NO INFO FOUND XXX Clinic Sewer Repairer 11/11/14 Mariela Martinez MD [address] [place] [address] Assigned PCP 05/13/16 07/31/19 Shalonda Kat NP [address] [facility] [place] [address] Assigned PCP 08/01/19 11/06/19 Mariela Martinez MD [address] [place] [address] Assigned PCP 11/07/19 10/12/21 documented as of this encounter
--- OUTSIDE RECORDS SUMMARY | 2024-03-08 11:49 | XMS_ITS | Encounter Summary ---
Author Organization [facility] Address [address] [place] [address]. [place] [address] Care Team Providers Care New Autos Delivery Driver Name Role Phone Mariela Martinez MD Primary Care Provide r Cheryle Lo RN Unavailable Mariela Martinez MD Unavailable Mariela Martinez MD Unavailable Shalonda Kat NP Unavailable [phone] Mariela Martinez MD Unavailable Encounter Details Date Type Department Care Team (Late st Contact Info) Description 11/21/2014 [facility] Treatment Plan [facility] [place] [address], [address] [place] [id number] Rosangela Wills, [facility] [address] [place], [place] [address] Social History Tobacco Use Types Packs/Day Years Used Date Smoking Tobacco: Former Smokeless Tobacco: Never Alcohol Use Standard Drinks/Week Comments Yes 0 (1 standard drink = 0.6 oz pur e alcohol) once a week Comments No Sex and Gender Information Value Date Recorded Sex Assigned at Not on file Legal Sex Female 3:27 AM DYNAMICS AX CONSULTANT Gender Identity Not on file Sexual Orientation Not on file documented as of this encounter Discharge Summaries * Carmelina Porter RN - 12/09/2014 8:45 AM CDT Adult Mental Health Intensive Outpatient Discharge Summary/Instructions Patient: Maisha Celaya : 1955 Age: [age] year old Sex: female Admission Date: 11/23/14 Discharge Date: 12/09/14 Diagnosis: Major Depressive Disorder, General Anxiety Disorder Focus of Treatment / Progress Personal Safety: Suicidal thoughts on and off since teens, No Plan, No Attempts, does have coping plan for safety in place * Follow your safety plan * Call crisis lines as needed: [facility] [phone] [facility] [phone] [facility] [phone] Crisis Connection [phone] [facility] [phone] [facility] [phone] [facility] [phone] National Suicide Prevention [facility] [phone] Suicide Prevention [phone] [facility] [phone] Managing symptoms of: Depressive symptoms, sleep disturbance, appetite disturbance, anhedonic,low energy, poor concentration, feelings of helplessness, hopelessness, worthlessness, muscle tension, fatique, irritability, shortness of breath with chest tightness,poor memory,job is primary stressor asis pain and physical symptoms from fibromyalgia. Community support/health: [employer], DBSA, Recovery Grps, Internet resources, Meet Up groups, volunteer opportunities, Job Accommodations Network, [employer], [facility], [facility] Grief loss and transition, Psych Recovery [facility], [facility], [facility], Managing Symptoms and Preventing Relapse * Go to all of your appointments * Take all medications as directed. * Carry a current list if medication with you * Do not use illicit (street) drugs. Avoid alcohol * Report these symptoms to your care team. These are early signs of relapse: Thoughts of suicide Losing more sleep Increased confusion Mood getting worse Feeling more aggressive Other: *Use these skills daily: Copy of summary sent to: Follow up with psychiatrist / main caregiver: Dr Napoleon Downs PCP [place] Next visit: will schedule Dr Gonzalez will give referral to a psychiatrist at [facility] Follow up with your therapist: Vern Leslie Next visit: will see at [facility] IOP Go to group therapy and / or support groups at: Start [facility] Friday12/12/14Friday through 4 hours each day See your medical doctor about: Concerns and issues with fibromyalgia Your treatment team appreciates having the opportunity to work with you and wishes you the best . Client Signature: Date / Time: Staff Signature: Date / Time: documented in this encounter Plan of Treatment Not on file documented as of this encounter Visit Diagnoses Not on filedocumented in this encounter Care Teams New Autos Delivery Driver Relationship Specialty Start Date End Date Mariela Martinez MD PCP - General Pediatrics 01/02/11 Mariela Martinez MD [address] [place] [address] PCP - Assigned PCP 05/13/16 06/02/18 Cheryle Lo RN XXX NO INFO FOUND XXX Clinic Dna Sequencing Associate 11/11/14 Mariela Martinez MD [address] [place] [address] Assigned PCP 05/13/16 07/31/19 Shalonda Kat NP [address] [facility] [place] [address] Assigned PCP 08/01/19 11/06/19 Mariela Martinez MD [address] [place] [address] Assigned PCP 11/07/19 10/12/21 documented as of this encounter
--- OUTSIDE RECORDS SUMMARY | 2024-03-08 11:49 | XMS_ITS | Encounter Summary ---
Author Organization [facility] Address [address] [place] [address] Care Team Providers Care Janitorial Supervisor Name Role Phone Mariela Martinez MD Primary Care Provide r Cheryle Lo RN Unavailable Mariela Martinez MD Unavailable Mariela Martinez MD Unavailable Shalonda Kat NP Unavailable [phone] Mariela Martinez MD Unavailable Reason for Visit * Reason Onset Date Comments Medication Problem 12/03/2015 BP increase w ith increase in Effexor dose Encounter Details Date Type Department Care Team (Late st Contact Info) Description 12/03/2015 [facility] Medical Advice [address] [address] Mariela Martinez MD [address] [place] [address] Medication Problem (BP increase with incre... Social History Tobacco Use Types Packs/Day Years Used Date Smoking Tobacco: Former Smokeless Tobacco: Never Alcohol Use Standard Drinks/Week Comments Yes 0 (1 standard drink = 0.6 oz pur e alcohol) once a week Comments No Sex and Gender Information Value Date Recorded Sex Assigned at Not on file Legal Sex Female 3:27 AM SACK REPAIRER Gender Identity Not on file Sexual Orientation Not on file documented as of this encounter Miscellaneous Notes * Telephone Encounter - Temi Merida RN - 12/05/2015 7:21 AM CDT Forwarded to provider for review. Ja Merida RN documented in this encounter Plan of Treatment Not on file documented as of this encounter Visit Diagnoses Not on filedocumented in this encounter Additional Health Concerns Assessment Noted Time PHQ-9 Depression Total Score: 7 11/30/19 16 7:19 AM CDT documented as of this encounter Care Teams Janitorial Supervisor Relationship Specialty Start Date End Date Mariela Martinez MD PCP - General Pediatrics 01/02/11 Mariela Martinez MD [address] [place] [address] PCP - Assigned PCP 05/13/16 06/02/18 Cheryle Lo RN XXX NO INFO FOUND XXX Clinic Junior Sales Representative 11/11/14 Mariela Martinez MD [address] [place] [address] Assigned PCP 05/13/16 07/31/19 Shalonda Kat NP [address] [facility] [place] [address] Assigned PCP 08/01/19 11/06/19 Mariela Martinez MD [address] [place] [address] Assigned PCP 11/07/19 10/12/21 documented as of this encounter
--- OUTSIDE RECORDS SUMMARY | 2024-03-08 11:50 | XMS_ITS | Encounter Summary ---
Author Organization [facility] Address [address] [place] [address] Care Team Providers Care Office Machines Wirer Name Role Phone Mariela Martinez MD Primary Care Provide r Cheryle Lo RN Unavailable Mariela Martinez MD Unavailable Mariela Martinez MD Unavailable [phone] Shalonda Kat NP Unavailable [phone] Mariela Martinez MD Unavailable Encounter Details Date Type Department Care Team (Late st Contact Info) Description 05/22/2011 [facility] Medical Advice [address] [address] [place] Social History Tobacco Use Types Packs/Day Years Used Date Smoking Tobacco: Former Smokeless Tobacco: Never Alcohol Use Standard Drinks/Week Comments Yes 0 (1 standard drink = 0.6 oz pur e alcohol) once a week Comments No Sex and Gender Information Value Date Recorded Sex Assigned at Not on file Legal Sex Female 3:27 AM ROLL OFF DRIVER Gender Identity Not on file Sexual Orientation Not on file documented as of this encounter Plan of Treatment Not on file documented as of this encounter Visit Diagnoses Not on filedocumented in this encounter Care Teams Office Machines Wirer Relationship Specialty Start Date End Date Mariela Martinez MD PCP - General Pediatrics 01/02/11 Mariela Martinez MD [address] [place] [address] PCP - Assigned PCP 05/13/16 06/02/18 Cheryle Lo RN XXX NO INFO FOUND XXX Clinic Pharmacy Teacher 11/11/14 Mariela Martinez MD [address] [place] [address] Assigned PCP 05/13/16 07/31/19 Shalonda Kat NP [address] [facility] [place] [address] Assigned PCP 08/01/19 11/06/19 Mariela Martinez MD [address] [place] [address] Assigned PCP 11/07/19 10/12/21 documented as of this encounter
--- OUTSIDE RECORDS SUMMARY | 2024-03-08 11:50 | XMS_ITS | Clinical Summary ---
Author Organization [facility] Address [place], [place] [address] Care Team Providers Care Margarine Churn Operator Name Role Phone Carlita Karimi MD Primary Care Provider [phone] Allergies Active Allergy Reactions Criticality Noted Date Comments Amitriptyline THROAT CLOSED UP Banana *Unknown 01/24/2017 Bupropion Hcl Angioedema High 01/09/2011 Cheese *Unknown 02/28/2017 Codeine Rash,Hives 02/27/2005 Duloxetine Rash,Hives 12/30/2005 Duloxetine Hcl Hives 12/30/2005 Gluten *Unknown 11/11/2012 Lip swelling and redness Green Tea Cough 07/10/2011 Camomile Lactose *Unknown 09/07/2014 Sensitivity to dairy Meperidine Hives,Nausea And Vomiting 02/27/2005 vomiting Morphine Hives,Nausea And Vomiting,Rash 02/27/2005 Hives Paroxetine Palpitations Low 01/09/2011 Prednisone Other - Describe In Comment Field 02/14/2014 Palpitations Pregabalin Other - Describe In Comment Field 02/14/2014 Palpitations Nabumetone ulcers Shellfish Containing Products Other - Describe In Comment Field 11/30/2006 Eyes close/swell up Wheat Containing Prod *Unknown 09/07/2014 Wheat sensitivity Medications loratadine 10 mg cap Take 10 mg by mouth once daily. Active vitamin B complex (B COMPLEX-VITAMIN B12) tablet Take 1 tablet by mouth once daily. 0 1 Active gh-zik-oyqzb-vit [id number] (Alive Women's 50 Plus, blend,) 240-120-300 mcg tab Take 1 Tablet by mouth once daily. Active cholecalciferol, Vitamin D3, 2,000 unit tablet Take 2,000 units by mouth once daily. Active loperamide (IMODIUM) 2 mg capsuleIndications :Diarrhea, unspecified type Take 4mg by mouth with 1st loose stool, then 2mg with each subsequent loose stool. Max 16 mg in 24 hrs 30 Capsule 2 Active levothyroxine (SYNTHROID) 100 mcg tabletIndications: Hypothyroidism, unspecified type Take 1 Tablet (100 mcg) by mouth before breakfast. 90 tablet. 3 2 Active SUMAtriptan (IMITREX) 50 mg tabletIndications: Atypical migraine Take 1 Tablet (50 mg) by mouth every 2 hours if needed for Migraine. Give at minimum 2hrs apart. Max Dose: 200mg per 24hrs. 10 Tablet 3 3 Active levothyroxine (SYNTHROID) 112 mcg tabletIndications: Acquired hypothyroidism TAKE 1 TABLET BY MOUTH BEFORE BREAKFAST 30 Tablet 4 Active CPAPIndications:OS A (obstructive sleep apnea) CPAP at 11 cms and CPAP supplies: nasal mask x1/3month with nasal cushion x2/mo Length of Need: 99 months Frequency of Use: Daily 1 Each 11 4 Active aspirin 325 mg cap Take by mouth. Active lisinopril-hydroch lorothiazide, 20-25 mg, (PRINZIDE, ZESTORETIC) 20-25 mg per tabletIndications: Essential hypertension Take 1 tablet by mouth once daily 90 Tablet 4 Active venlafaxine (EFFEXOR XR) 150 mg Extended-Release capsuleIndications :Generalized anxiety disorder TAKE 1 CAPSULE BY MOUTH ONCE DAILY WITH EVENING MEAL 90 Capsule 4 Active Active Problems Problem Noted Date Diagnosed Date Lymphocytic colitis 12/22/2022 Preclinical coronary artery disease 12/22/2022 Mixed hyperlipidemia 12/23/2021 Class 2 severe obesity due t o excess calories with serious comorbidity and body mass index (BMI) of 35.0 to 35.9 in adult 12/19/2020 Presbyopia 08/22/2020 Regular astigmatism, bilateral 08/22/2020 Atypical migraine 10/31/2016 Memory loss 01/12/2015 Overview (05/24/2019): Overview: Forgetfulness (e.g. Where she placed things, finding words). MoCA on 01/12 was Last Assessment & Plan: A: Forgetfulness (e.g. Where she placed things, finding words). MoCA on 01/12 was . Compounded by stress of depression and PTSD P:We discussed the spectrum of memory changes Added B12, folate BMP to labs and MRI Refer to neuropsychologist for more in depth neuropsych testing Generalized anxiety disorder 11/15/2014 Overview (05/24/2019): Last Assessment & Plan: A: related to PTSD, controls panic attacks with breathing strategies now P: Feels the depression group she attends is helping a lot and plans to follow that with inquiry about PTSD support group, all also help her overall cognitive function Recurrent major depressive disorder, in partial remission 09/07/2014 Overview (05/24/2019): Overview: Failed paxil (palpitations), zoloft (?palpitations; weight gain), effexor (quit working), cymbalta (hives), wellbutrin (throat swelling), prozac (raised bp, felt better off it). Has not been on lexapro/celexa Essential hypertension 08/06/2013 TACHO (obstructive sleep apnea) 08/26/2011 Overview (05/24/2019): Overview: Dx 07/2011 PUD (peptic ulcer disease) 01/09/2011 Overview (05/24/2019): Overview: From NSAID use from fibro GERD (gastroesophageal reflux disease) 1 Vitamin D deficiency 05/29/2010 PTSD (post-traumatic stress disorder) 05/01/2010 Fibromyalgia 09/19/2008 Overview (05/24/2019): Overview: NSAIDS Wellbutrin, prozac, cymbalta, effexor relafen- ulcers lyrica- mood issues, memory issues. Diaphragmatic hernia without mention of obstruction or gangrene 05/15/2006 Personal history of colonic polyps 03/21/2005 Overview (03/21/2005): SINGLE BENIGN POLYP 2003 - REPEAT COLONOSCOPY IN 2008 Acquired hypothyroidism Resolved Problems Problem Noted Date Diagnosed Date Resolved Date COVID-19 virus infection 07/20/2021 Overview (07/20/2021): Test positive 07/20, symptoms 07/18. Moderate mixed hyperlipidemi a not requiring statin therapy 12/19/2020 12/23/2021 Viral illness 04/08/2017 04/08/2017 Viral respiratory illness, r/o influenza 04/08/2017 05/24/2019 Chronic cough 04/08/2017 05/24/2019 Morbid obesity, unspecified obesity type 12/13/2016 12/19/2020 HTN (hypertension) 06/15/2010 0 Overview (06/15/2010): Hypertension induced by Prozac. Plan to used Norvasc to counteract Prozac induced hypertension since she has a good response to increasing her Prozac. Sprain and strain of unspeci fied site of shoulder and upper arm 06/07/2010 04/08/2017 Sprain of neck 06/07/2010 04/08/2017 Health maintenance examination 05/29/2010 05/24/2019 Overview (06/11/2010): Health Maintenance Female >50 Last PAP: 2006, no cervix due 2011. Last Mammogram: Due in 2010 Last Colonoscopy: Due 2013 Last DEXA: 2010 normal, repeat in 2015. Ovarian Cancer screen. Every 5 years. Due 2016 Major depression, recurrent 05/25/2009 05/24/2019 Overview (05/01/2010): Previously on Cymbalta, Paxil, Zoloft. Prozac, Wellbutrin with side effects. Effexor initially worked but eventually quit working. Patient currently on Prozac. Never on Remeron. Chest pain 10/14/2008 05/24/2019 Family history of malignant neoplasm of ovary 05/15/19 07 05/24/2019 Myalgia and myositis, unspecified 04/08/2017 Overview (03/19/2005): FIBROMYALGIA DX Other malignant neoplasm of skin, site unspecified 04/08/2017 Overview (03/19/2005): SKIN CANCER Encounters Date Type Department Care Team Description 01/10/2024 Refill [facility] [address] [place] [address] Mariela Martinez MD Refill Request (Venlafaxine) from Last 3 Months Immunizations Name Administration Dates Next Due COVID-19 vaccine (Moderna 50mcg/0.5mL) 12YO+ BIVALENT PF, MDV 12/21/2021 COVID-19 vaccine (Pfizer-Bio NTech 30mcg/0.3mL) PF, MDV 12/26/2020,06/23/2020,06/02/2020 Influenza, High-dose Inactivated 12/11/2020,12/30 Influenza, High-dose Quadriv alent Inactivated 01/21/2022 Influenza, IIV3 (Age 6-35 mos) 01/15/2012 Influenza, IIV3 (Age >=3 years) 12/11/19 17,01/15/2012,01/09/2011,2005,03/07/1999,02/08/1998 Influenza, IIV4 12/16/2017 Influenza, IIV4 (=>6mos) MDV 12/10/2016 Influenza, Inactivated AIIV4 (Age 65+ Years) Preserv Free 12/24/2022,12/17/2019 Pneumococcal Poly,23-Valent (Pneumovax) 09/12/2020 Pneumococcal conj 13-Valent (Prevnar 13) 05/25/2019 Tdap 09/12/2020,05/25/2009 Zoster (Shingrix-RZV, recombinant) 12/11/2020 Family History Medical History Relation Name Comments Stroke Brother Coronary artery disease Father COPD Mother Dementia Mother Hyperlipidemia Mother HIGH LIPIDS Hypertension Mother Other Mother HX OF ULCERS/PO LYPS Heart Disease Other 1 FAIR AMOUNT OF HEART DISEASE IN MOTHER'S FAMILY Diabetes Other 2 AN UNCLE Cancer Paternal Grandmother Dx with Ovarian Ca at 35 Multiple sclerosis Sister Cancer-breast No Family History Cancer-colon No Family History Cancer-prostate No Family History Relation Name Status Comments Brother Father Mother Alive HAD POLYPS AND FAIR AMOUNT OF HEART DISEASE IN HER FAMILY Other 1 Other 2 Paternal Grandmother Sister Alive Social History Tobacco Use Types Packs/Day Years Used Date Smoking Tobacco: Former Cigarettes 1 4 0 08/29/1973 - 08/29/1977 Smokeless Tobacco: Never Tobacco Cessation:Counseling Given: Yes Alcohol Use Standard Drinks/Week Comments Yes 6.7 (1 standard drin k = 0.6 oz pure alcohol) OCCASIONAL WINE--1 glass per month PHQ-2 Answer Date Recorded PHQ-2 TOTAL SCORE 4 12/24/2022 Social Connections Answer Date Recorded Frequency of Communication with Friends and Fami ly Not on file 12/14/2023 Financial Resource Strain Answer Date R ecorded Difficulty of Paying Living Expenses 3 12/10/2022 Difficulty of Paying Living Expenses Not on file 12/10/2022 Food Insecurity Answer Date Recorded Worried About Running Out of Food in the Last Ye ar 1 12/10/2022 Transportation Needs Answer Date Record ed Lack of Transportation (Medical) 1 12/10/2022 Housing Stability Answer Date Recorded Unable to Pay for Housing in the Last Year 1 12/10/2022 Comments No Sex and Gender Information Value Date Recorded Sex Assigned at Not on file Legal Sex Female 5:43 AM PIN DRAFTER Gender Identity Not on file Sexual Orientation Not on file Obstetrics History Last Filed Vital Signs Vital Sign Reading Time Taken Comments Blood Pressure 122/77 09/15/2023 11:38 AM CDT Pulse 82 09/15/2023 11:38 AM CDT Temperature 36.1 C (97 F) 09/15/2023 11:38 AM CDT Respiratory Rate 16 09/15/2023 11:38 AM CDT Oxygen Saturation 98% 09/15/2023 11:38 AM CDT Inhaled Oxygen Concentration - - Weight 80.3 kg (177 lb) 09/15/2023 11:38 AM CDT Height 157.5 cm (5' 2) 09/15/2023 11:38 AM CDT Body Mass Index 32.37 09/15/2023 11:38 AM CDT Plan of Treatment Health Maintenance Due Date Last Done Comments RSV vaccine for adults or (1 - Risk 60-74 years 1-dose series) 2013 Zoster (shingles) series for age 50+ (2 of 2) 02/05/2021 12/11/2020 COVID-19 vaccine series ( season) 2023 01/29/2023, 12/21/2021, 12/26/2020, Additional history exists Influenza for age 65+ 11/30/2023 12/24/2022 , 01/21/2022, 12/11/2020, Additional history exists Depression screening for age 12+ 12/25/2023 12/24/2022, 12/21/2021, 12/19/2020, Additional history exists Medicare Wellness for age 65+ 12/25/2023, 12/21/2021, 12/19/2020, Additional history exists BMI (ht and wt on same day) for age 18+ 04/29/2024 04/29/2023, 12/24/2022, 03/16/2022, Additional history exists Mammogram for age 45-75 02/03/2025 02/04/20, 11/30/2021, 08/03/2020, Additional history exists Lipids for age 45-75 12/12/2027 12/11/2022, 12/21/2021, 03/19/2021, Additional history exists Colonoscopy through age 75 03/20/202903/20, 03/10/2019, 03/10/2019 (Completed outside of [facility]), Additional history exists Tetanus booster 09/12/2030 09/12/2020, 05/02, 05/25/2009 (Declined) Hepatitis C screening for ag e 18-79 Completed 10/18/2015 Pneumococcal series for age 65+ Completed , 05/25/2019 Tdap Completed 09/12/2020, 05/25/2009 DEXA/DXA scan for age 65+ Completed 2021, 12/22/2016 (Verified in Care Everywhere or Patient Record), 12/13/2016 (Completed outside of [facility]), Additional history exists Medical Devices Implanted Type Area Laboratory Engineer Device Identifier Shelf Expiration Date Model / Serial / Lot Patch Crura Soft Sm - [id number] Implanted:Qty: 1 on 11/30/2006 at [facility] [place] [id number] / / [id number] Procedures Procedure Name Priority Date/Time Associated Diagnosis Comments XR MAMMO KAREN BILAT SCREEN Routine 02/03/2023 2:34 PM PIN DRAFTER Visit for screening mammogram LIPID PANEL W REFLEX MEASURED LDL Routine 12/11/2022 11:59 AM CDT Pure hypercholesterolemia SCAN-COLONOSCOPY 03/20/2022 1:00 PM PIN DRAFTER XR DXA BONE DENSITY 2 SITES AXIAL Routine 11/14/2021 10:01 AM CDT Postmenopausal from Last 3 Months or Most Recently Relevant to Health Maintenance Results * XR MAMMO KAREN BILAT SCREEN (02/03/2023 2:34 PM PIN DRAFTER) Anatomical Region Laterality Modality BREASTS, Breast Left, Breast Right Bilateral Mammography Impressions 02/04/2023 2:21 PM PIN DRAFTER There is no radiographic evidence for malignancy. Recommend annual mammograms. MAMMOGRAM ASSESSMENT: ACR 1 Negative PATIENTS: You will also receive a letter with your examination results in an easy to read format. If you have questions about your results, please contact your referring provider. Narrative 02/04/2023 2:21 PM PIN DRAFTER For Patients: As a result of the Century Cures Act, medical imaging exams and procedure reports are released immediately into your electronic medical record. You may view this report before your referring provider. If you have questions, please contact your health care provider. XR MAMMO KAREN BILAT SCREEN [[id number]] CLINICAL HISTORY: This is an asymptomatic 67 y.o. patient. INDICATION FOR EXAM: Mammogram Screening. TECHNIQUE: CC & MLO views were obtained. This study was evaluated with the assistance of Computer-Aided Detection. Breast Tomosynthesis was used in interpretation. COMPARISON FILM: Yes 11/30/21 [facility] 08/03/20 [facility] FINDINGS: The breasts have scattered areas of fibroglandular density. There are no dominant masses, suspicious micro calcifications or areas of architectural distortion. Mariela Martinez MD MAMMO Final Result * (ABNORMAL) LIPID PANEL W REFLEX MEASURED LDL (12/11/2022 11:59 AM CDT) CHOLESTEROL,TOTAL 243(H) 100 - 199 mg/dL 12/12/2022 4:34 AM CDT [facility] Comment: Cholesterol, Total Reference Ranges Desirable <200 mg/dL Borderline 200-239 mg/dL High >=240 mg/dL TRIGLYCERIDES 90 <150 mg/dL 12/12/2022 4:34 AM CDT [facility] HDL CHOLESTEROL 75 >40 mg/dL 4:34 AM CDT [facility] NON-HDL CHOLESTEROL 168(H) <145 mg/dl 12/12/2022 4:34 AM CDT [facility] CHOL/HDL RATIO 3.24 <4.50 12/12/2022 4:34 AM CDT [facility] LDL CHOLESTEROL 150(H) <=130 mg/dL 12/12/2022 4:34 AM CDT [facility] VLDL CHOLESTEROL 18 <=30 mg/dL 12/12/2022 4:34 AM CDT [facility] PROVIDER ORDERED STATUS RANDOM 12/12/2022 4:34 AM CDT [facility] Blood BLOOD SPECIMEN / Unknown Venipuncture / Unknown 12/11/2022 11:59 AM CDT 12/11/2022 12:01 PM CDT Mariela Martinez MD CHEMISTRY Final Result [facility] [address] [place] [address], * SCAN-COLONOSCOPY (03/20/2022 1:00 PM PIN DRAFTER) Narrative Procedure Note Itz Malhotra MD - 03/20/2022 12:14 PM CST [facility] [address], [address], [place] [address] Patient Name: Maisha Celaya Gender: Female Exam Date: 03/20/2022 Visit Number: [id number] Age: 66 Years Date of : 1955 Attending MD: Itz Nguyen MD Medical Record#: [id number] Procedure: Colonoscopy Indications: Diarrhea Follow up polyps Referring MD: Mariela Martinez MD Primary MD: Mariela Martinez MD Medications: Admitting Medications: 0.9% Normal Saline 500cc/hour Intra Procedure Medications: Patient received monitored anesthesia care. Admitting Medications: 0.9% Normal Saline 500cc/hour Intra Procedure Medications: Patient received monitored anesthesia care. Complications: No immediate complications Procedure: An examination of the heart and lungs was performed and found to be withinacceptable limits. . The patient was therefore deemed a reasonablecandidate for endoscopy and sedation. The risks and benefits of the procedure were explained to the patient.After obtaining informed consent, the patient received monitoredanesthesia care and I passed the scope without difficulty via the rectum to the ileum. The appendiceal orificeand ic valve were identified. The scope was retroflexed during theexamination The quality of the prep was fair, good after lavage (Srinivas/GatSplit). This was a complete examination throughout the entire colon. Findings: Diverticulosis. Location: - sigmoid. Quantity: few. Noinflammation present. Hemorrhoids. Internal and external hemorrhoids without bleeding. Remainder of the exam is normal. Random biopsies were taken throughout the colon to rule out microscopiccolitis. Comments: The colon was very redundant. Extensive time was taken lavagingand suctioning. Impression: Diverticulosis of colon without diverticulitis Internal and external hemorrhoids without complication Personal history of colonic polyps Preliminary Plan: Repeat colonoscopy in 7 years Recommendation Comments: It's possible the diarrhea is from overflow. Youcould try staying on Miralax one capful in 8 oz. water or juice once a dayto see if that helps with BMs. Stop it if it causes diarrhea. Pathology Results: A: COLON, RANDOM, BIOPSY: 1. Lymphocytic colitis 2. See comment regarding potential medication association COMMENTS A. The histologic changes are typical of the lymphocytic colitis form ofmicroscopic colitis. This diagnosis is further supported by the history ofdiarrhea and normal appearance of the mucosa on colonoscopy. Some cases of lymphocytic colitis have been associated with medicationuse; high likelihood associations include NSAIDs, ASA, lansoprazole,ranitidine, SSRI class medications, ticlopidine, and acarbose, with manyother medications having been implicated as well. It is noted that an SSRI(venlafaxine) is listed as an active medication in [employer] - if symptomscorrelate with use of this SSRI, consideration for substituting for thismedication is reasonable to see if the diarrhea resolves (Reference: DrugExposure and the Risk of Microscopic Colitis: A Critical Update. LucendoAJ. Drugs R D. 2017 May;17(1):79-89. doi: 10.1007/i64623-868-9709-5.Review.). Occasionally prolonged infectious diarrhea that occurs in outbreaks([place] diarrhea) can show similar histologic changes. MICROSCOPIC A: Performed Electronically signed by: Trav Madera MD [facility] [address] [place] [address] Orders Instruction(s)/Education: Instruction/Education Timeframe Assessment Diverticulosis/Diverticulitis K57.30 Hemorrhoids (External) K57.30 Hemorrhoids (Internal) K57.30 High Fiber Diet K57.30 Final Plan: Repeat colonoscopy in 7 years. We will attempt to contact you at appropriate intervals via U.S. mail. Wemay not be able to find you or contact you at that time, therefore youshould know that the responsibility for following our recommendation restswith you. If you don't hear from us at the time your procedure is due,please contact our office to schedule an appointment. If your contactinformation should change, please contact our office so that we can updateyour record. Additional Comments: This could cause diarrhea and we can treat with medications. Call if you are still having diarrhea despite the trial of Miralax dailyand we will set up a clinic appoint to discuss treatment options. _Electronically signed by: Itz Nguyen MD 03/20/2022 cc: Mariela Martinez MD cc: Mariela Martinez MD us Itz Malhotra MD OTHER Mariah laureano Result * XR DXA BONE DENSITY 2 SITES AXIAL [08279.1] (11/14/2021 10:01 AM CDT) Anatomical Region Laterality Modality Spine, HIPS, HIPL, HIPR Other 11/14/2021 10:0 1 AM CDT Impressions 11/14/2021 10:59 AM CDT NORMAL. Bone mineral density measurements are within normal limits using T score. Narrative 11/14/2021 10:59 AM CDT For Patients: As a result of the Cures Act, medical imaging exams and procedure reports are released immediately into your electronic medical record. You may view this report before your referring provider. If you have questions, please contact your health care provider. EXAM: XR DXA BONE DENSITY 2 SITES AXIAL LOCATION: [facility] DATE/TIME: 11/14/2021 10:01 AM INDICATION: I. other (screening-at minimum one option in 2-5 must be selected) - z13.820 Postmenopausal COMPARISON: None. TECHNIQUE: Dual-energy x-ray absorptiometry performed with routine technique. FINDINGS: Lumbar Spine: L1-L4: BMD: 1.141 g/cm2. T-score: -0.2. Z-score: 1.4 RIGHT Hip Total: BMD: 0.958 g/cm2. T-score: -0.4. Z-score: 1.0 RIGHT Hip Femoral neck: BMD: 0.881 g/cm2. T-score: -1.1. Z-score: 0.5 LEFT Hip Total: BMD: 0.935 g/cm2. T-score: -0.5. Z-score: 0.8 LEFT Hip Femoral neck: BMD: 0.834 g/cm2. T-score: -1.5. Z-score: 0.1 WHO Criteria: Normal: T score at or above -1 SD FRAX Results: Not applicable due to Normal bone mineral density. Procedure Note Naa Estrada MD - 11/14/2021 For Patients: As a result of the Cures Act, medical imagingexams and procedure reports are released immediately into your electronicmedical record. You may view this report before your referring provider.If you have questions, please contact your health care provider. EXAM: XR DXA BONE DENSITY 2 SITES AXIAL LOCATION: [facility] DATE/TIME: 11/14/2021 10:01 AM INDICATION: I. other (screening-at minimum one option in 2-5 must beselected) - z13.820 Postmenopausal COMPARISON: None. TECHNIQUE: Dual-energy x-ray absorptiometry performed with routinetechnique. FINDINGS: Lumbar Spine: L1-L4: BMD: 1.141 g/cm2. T-score: -0.2. Z-score: 1.4 RIGHT Hip Total: BMD: 0.958 g/cm2. T-score: -0.4. Z-score: 1.0 RIGHT Hip Femoral neck: BMD: 0.881 g/cm2. T-score: -1.1. Z-score: 0.5 LEFT Hip Total: BMD: 0.935 g/cm2. T-score: -0.5. Z-score: 0.8 LEFT Hip Femoral neck: BMD: 0.834 g/cm2. T-score: -1.5. Z-score: 0.1 WHO Criteria: Normal: T score at or above -1 SD FRAX Results: Not applicable due to Normal bone mineral density. IMPRESSION: NORMAL. Bone mineral density measurements are within normal limits using Tscore. Mariela Martinez MD DEXA Final Result from Last 3 Months or Most Recently Relevant to Health Maintenance Insurance [id number] [place] [address] [facility]IC[facility] [address]AGE [phone] [facility] [place] [address] [employer] MEDICARE ADVANTAGE MR [phone] [facility] [place] [id number] Advance Directives * Full Code (Latest Code Status on File) Date Activated Date Inactivated Comments 04/08/2017 4:21 AM 04/08/2017 4:36 PM * Full Code Date Activated Date Inactivated Comments 12/04/2007 7:25 AM 12/04/2007 12:10 PM * Full Code Date Activated Date Inactivated Comments 11/30/2006 7:20 PM 12/02/2006 4:57 PM * Full Code Date Activated Date Inactivated Comments 11/30/2006 2:16 AM 11/30/2006 7:20 PM * Full Code Date Activated Date Inactivated Comments 07/30/2006 8:28 AM 07/30/2006 1:20 PM Care Teams Margarine Churn Operator Relationship Specialty Start Date End Date Carlita Karimi MD [address] [place] [address] PCP - General Internal Medicine 09/08/23
== END 2024-06-03 13:09 | disposition home or self-care (01) ==
LOC: MAMMO 13:10
PROVIDERS: PCP Internal Medicine; Visit Provider Internal Medicine
DX: Z12.31 Encounter for screening mammogram for malignant neoplasm of breast (principal)
CPT/HCPCS: 77063; 77067